=== PATIENT | male | born 1960 | race Caucasian/White ===

== ENCOUNTER 2016-12-16 11:05 | Emergency (ER) | payer OTHER ==
[2016-12-16 11:28] VITALS: BP 101/72; PULSE 110; TEMP 97.7; BMI 34.2
[2016-12-16] MEDS ORDERED: IBUPROFEN 600 MG TABLET (FP) PO ONE ×2 (11:50→11:55)
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
== END 2016-12-16 13:50 | disposition home or self-care (01) ==
LOC: JERFT 11:05
DX: S13.4XXA Sprain of ligaments of cervical spine, initial encounter (principal); V73.5XXA Driver of bus injured in collision with car, pick-up truck or van in traffic accident, initial encounter; Y92.414 Local residential or business street as the place of occurrence of the external cause; Y93.89 Activity, other specified; E11.9 Type 2 diabetes mellitus without complications; E78.00 Pure hypercholesterolemia, unspecified
CPT/HCPCS: 72125-TC; 73030-TC-RT; 99281-25